=== PATIENT | male | born 1975 | race Caucasian/White ===

== ENCOUNTER 2018-11-11 19:21 | Emergency (ER) | payer OTHER ==
[2018-11-11 20:24] VITALS: BP 123/61
--- NOTE | 2018-11-11 20:39 | UC ---
General HPI - HPI Summary HPI Summary: pt is c/o his tongue and roof of mouth being sore/raw x 2 weeks. he notes a few spots on the roof of his mouth as well. he denies uri, sore throat and fever. he is a diabetic. pt also takes blood thinners due to CAD and gets some bruising but nothing unusual or different. - History of Current Complaint Chief Complaint: UCGeneralIllness Stated Complaint: ORAL COMPLAINT Time Seen by Provider: 11/11/18 20:19 Hx Obtained From: Patient Onset/Duration: Gradual Onset Timing: Constant Pain Intensity: 4 - Allergy/Home Medications Allergies/Adverse Reactions: Allergies Allergy/AdvReac Type Severity Reaction Status Date / Time Penicillins Allergy See Comment Verified 11/11/18 20:25 Home Medications: Home Medications Diazepam TAB(*) [Valium TAB(*)] 5 mg PO Q6H PRN 11/11/18 [History Confirmed ] Empagliflozin [Jardiance] 10 mg PO DAILY 11/11/18 [History Confirmed 11/11/18] Ezetimibe TAB* [Zetia TAB*] 10 mg PO DAILY 11/11/18 [History Confirmed 11/11/18] Hydrochlorothiazide TAB* [Hydrodiuril TAB*] 25 mg PO DAILY 11/11/18 [History Confirmed 11/11/18] Liraglutide [Victoza] 18 mg SC DAILY 11/11/18 [History Confirmed 11/11/18] PMH/Surg Hx/FS Hx/Imm Hx Endocrine History: Diabetes, Dyslipidemia Cardiovascular History: Hypertension Respiratory History: COPD Psychological History: Depression - Surgical History Surgical History: Yes Surgery Procedure, Year, and Place: CARDIAC CATH NO STENTING 4 YRS AGO AT [facility] - Family History Known Family History: Positive: Non-Contributory - Social History Lives: With Family Alcohol Use: Weekly Alcohol Amount: 1 PER YEAR Substance Use Type: None Smoking Status (MU): Former Smoker Amount Used/How Often: PACK A DAY Have You Smoked in the Last Year: No When Did the Patient Quit Smoking/Using Tobacco: 1999 Review of Systems All Other Systems Reviewed And Are Negative: No Constitutional: Negative: Fever Skin: Negative: Bruising Eyes: Negative: Drainage, Eye Redness ENT: Negative: Sore Throat, Ear Ache, Sinus Congestion Neurological: Negative: Headache Physical Exam Triage Information Reviewed: Yes Appearance: Well-Appearing Vital Signs: Initial Vital Signs Temp 96.5 F 11/11/18 20:19 Pulse 75 11/11/18 20:19 Resp 18 11/11/18 20:19 BP 123/61 11/11/18 20:19 Pulse Ox 98 11/11/18 20:19 Vital Signs Reviewed: Yes Eyes: Positive: Conjunctiva Clear ENT: Positive: Pharynx normal, TMs normal, Other - 5 tiny red spots on hard palate. tongue white. no bruising or bleeding from gums or cheeks.. Negative: Nasal congestion, Nasal drainage, Trismus, Muffled voice, Hoarse voice, Uvula midline Dental: Negative: Abscess @ Neck: Positive: Supple, Nontender, No Lymphadenopathy Respiratory: Positive: No respiratory distress Cardiovascular: Positive: RRR Musculoskeletal: Positive: ROM Intact Neurological: Positive: Alert Psychological: Positive: Age Appropriate Behavior Skin Exam: Normal, Other - No petechial rash or brusing on general inspection. Course/Dx - Differential Dx - Multi-Symptom Differential Diagnoses: Other - tongue is white but spots on hard palate are non specific. no signs of excess brusing. given hx of DM, will tx with Nystatin and close f/u with his ent or pcp. - Diagnoses Provider Diagnosis: Stomatitis Discharge ED - Sign-Out/Discharge Documenting (check all that apply): Patient Departure All imaging exams completed and their final reports reviewed: No Studies - Discharge Plan Condition: Stable Disposition: HOME Prescriptions: Nystatin SUSPENSION* 500,000 units .SEE ORDER QID 14 Days #280 ml Patient Education Materials: Gingivostomatitis (ED), Oral Candidiasis (ED) Referrals: Brando Blackman MD [Primary Care Provider] - Landon Ingram MD [Medical Doctor] - Additional Instructions: FOLLOW UP WITH YOUR ENT OR PRIMARY CARE NEXT WEEK OR SOONER IF WORSE. - Billing Disposition and Condition Condition: STABLE Disposition: Home
[2018-11-11] MEDS ORDERED: Nystatin SUSPENSION* 100000 UNITS/ML 5 ML UDC PO ONE ×2 (20:42→21:09)
== END 2018-11-11 21:13 | disposition home or self-care (01) ==
LOC: UCCORT 19:21
DX: K12.1 Other forms of stomatitis (principal); E11.9 Type 2 diabetes mellitus without complications; Z79.01 Long term (current) use of anticoagulants; I25.10 Atherosclerotic heart disease of native coronary artery without angina pectoris; I10 Essential (primary) hypertension; Z79.84 Long term (current) use of oral hypoglycemic drugs; E78.5 Hyperlipidemia, unspecified; F32.9 Major depressive disorder, single episode, unspecified; Z87.891 Personal history of nicotine dependence
CPT/HCPCS: 99212; A9270-GY; G0463